=== PATIENT | female | born 1935 | race Caucasian/White ===

== ENCOUNTER 2016-08-13 16:42 | Emergency (ER) | payer MEDICARE, OTHER ==
[~2016-08-13] VITALS: Ht 154.9 cm; Wt 52.2 kg
[~2016-08-13 16:42] MED LIST: OLME20TA15; THYR30TA2
[2016-08-13 17:07] VITALS: BP 119/68
== END 2016-08-13 18:06 | disposition home or self-care (01) ==
LOC: ER 16:45
DX: S67.190A Crushing injury of right index finger, initial encounter (principal); M19.041 Primary osteoarthritis, right hand; I10 Essential (primary) hypertension; Z88.8 Allergy status to other drugs, medicaments and biological substances; W23.1XXA Caught, crushed, jammed, or pinched between stationary objects, initial encounter; Y93.89 Activity, other specified; Y92.89 Other specified places as the place of occurrence of the external cause; Y99.9 Unspecified external cause status
CPT/HCPCS: 29130; 73140; 99284; A4606; Z7610

== ENCOUNTER 2017-06-30 22:58 | Emergency (ER) | payer MEDICARE, OTHER ==
[~2017-06-30] VITALS: Ht 157.5 cm; Wt 54.9 kg
[~2017-06-30 22:58] MED LIST changes: -OLME20TA15; +OLME20TA21
[2017-06-30 23:16] VITALS: BP 150/80
--- NOTE | 2017-06-30 23:17 | NUR ---
PT BIBSELF C/O POSSIBLE ALLERGIC REACTION S/P TAKING MEDICINE THIS AM. PT AOX3 RR EVEN AND UNLABORED. NO SOB NOTED. NAD NOTED. NO NVD AT THIS TIME. PT GOWNED AND PLACED ON MONITOR WAITING FOR MD GREENE.
--- NOTE | 2017-06-30 23:28 | NUR ---
pt no longer in room. Patient eloped from facility. ER MD notified.
== END 2017-06-30 23:30 | disposition left against medical advice (07) ==
LOC: ER 23:00
DX: Z53.21 Procedure and treatment not carried out due to patient leaving prior to being seen by health care provider (principal)
CPT/HCPCS: A4606; Z7502; Z7610

== ENCOUNTER 2020-12-14 11:48 | Outpatient (CLI) | payer MEDICARE, OTHER ==
[~2020-12-14 11:48] MED LIST changes: +OLME20TA13; -OLME20TA21
[2020-12-14 13:34] LABS: BASOPHILS % (AUTO) 0.4 % (0.0-2.0); BILIRUBIN,URINE NEGATIVE (NEGATIVE); COLOR,URINE YELLOW (YELLOW); EOSINOPHILS % (AUTO) 2.1 % (0.0-6.0); HEMATOCRIT 45 % (33-45); HEMOGLOBIN 15.2 g/dL (11.5-14.8); LEUKOCYTE ESTERASE ,URINE NEGATIVE (NEGATIVE); LYMPHOCYTES % (AUTO) 22.5 % (20.0-44.0); MEAN CORPUSCULAR HGB CONC 34 g/dl (31.0-36.0); MEAN CORPUSCULAR VOLUME 100 fL (82-100); MONOCYTES # (AUTO) 0.4 K/uL (0.1-1.30); MONOCYTES % (AUTO) 7.9 % (2.0-12.0); NEUTROPHILS % (AUTO) 67.1 % (43.0-81.0); NITRITE, URINE NEGATIVE (NEGATIVE); PH,URINE 6.5 (5.0-8.0); PLATELET COUNT (AUTO) 173 K/uL (150-450); PROTEIN,URINE NEGATIVE (NEGATIVE); RED BLOOD CELL COUNT(AUTO) 4.47 MIL/uL (4.0-5.2); UGLUCOSE NEGATIVE (NEGATIVE); UROBILINOGEN,URINE 0.2 EU/dL (0.2); WHITE BLOOD COUNT (AUTO) 4.4 K/uL (4.3-11.0)
[2020-12-14 17:54] LABS: ALANINE AMINOTRANSFERASE 30 U/L (12-78); ALBUMIN 3.4 g/dL (3.4-5.0); ALKALINE PHOSPHATASE 112 U/L (46-116); ASPARTATE AMINOTRANSFERASE 22 U/L (15-37); BILIRUBIN,TOTAL 0.4 mg/dL (0.2-1.0); CALCIUM, SERUM 10.2 mg/dL (8.5-10.1); CARBON DIOXIDE 29 mmol/L (21-32); CHLORIDE 108 mmol/L (98-107); CREATININE 0.6 mg/dL (0.6-1.3); GLUCOSE 78 mg/dL (74-106); MAGNESIUM 2.1 mg/dL (1.8-2.4); PHOSPHORUS 2.6 mg/dL (2.5-4.9); POTASSIUM 4.3 mmol/L (3.5-5.1); SODIUM SERUM 143 mmol/L (136-145); TOTAL PROTEIN, SERUM 6.5 g/dL (6.4-8.2); UREA NITROGEN, BLOOD 29 mg/dL (7-18)
[2020-12-14 18:32] LABS: C-REACTIVE PROTEIN < 0.2 mg/dL (0.0-0.9)
[2020-12-15 09:07] LABS: *SPE A/G RATIO 1.3 (0.7-1.7); *SPE ALBUMIN 3.4 g/dL (2.9-4.4); *SPE ALPHA-1-GLOBULIN 0.3 g/dL (0.0-0.4); *SPE ALPHA-2-GLOBULIN 0.7 g/dL (0.4-1.0); *SPE BETA GLOBULIN 0.9 g/dL (0.7-1.3); *SPE GLOBULIN, TOTAL 2.6 g/dL (2.2-3.9); *SPE M-SPIKE Not Observed g/dL (Not Observed); *SPEGAMMA GLOBULIN 0.7 g/dL (0.4-1.8)
== END 2020-12-14 23:59 | disposition home or self-care (01) ==
LOC: MSC 11:48
PROVIDERS: ATTEND Internal Medicine
DX: E83.52 Hypercalcemia (principal); M81.0 Age-related osteoporosis without current pathological fracture; I10 Essential (primary) hypertension; R63.4 Abnormal weight loss; Z68.20 Body mass index [BMI] 20.0-20.9, adult; E78.5 Hyperlipidemia, unspecified; B27.00 Gammaherpesviral mononucleosis without complication; G57.93 Unspecified mononeuropathy of bilateral lower limbs; R42 Dizziness and giddiness
CPT/HCPCS: 36415; 80053; 81003; 82043; 82306; 82570; 82607; 82652; 83735; 83970; 84100; 84155 ×2; 84156; 84165; 85025; 85652; 86140; G0463

== ENCOUNTER 2020-12-15 12:21 | Outpatient (CLI) | payer MEDICARE, OTHER | END 2020-12-15 23:59 | disposition home or self-care (01) | LOC: NM 12:21 | PROVIDERS: ATTEND Internal Medicine | DX: I10 Essential (primary) hypertension (principal); E78.5 Hyperlipidemia, unspecified; M81.0 Age-related osteoporosis without current pathological fracture; E83.52 Hypercalcemia | CPT/HCPCS: 78070; A9500 ==

== ENCOUNTER → 2021-01-02 | Outpatient (CLI) | payer MEDICARE, OTHER | END | disposition home or self-care (01) | LOC: MSC 14:30 | PROVIDERS: ATTEND Internal Medicine | DX: E83.52 Hypercalcemia (principal); D35.1 Benign neoplasm of parathyroid gland; R53.83 Other fatigue; M81.0 Age-related osteoporosis without current pathological fracture; B27.00 Gammaherpesviral mononucleosis without complication; I10 Essential (primary) hypertension; E78.5 Hyperlipidemia, unspecified; G57.93 Unspecified mononeuropathy of bilateral lower limbs ==

== ENCOUNTER 2021-01-05 11:25 | Outpatient (CLI) | payer MEDICARE, OTHER ==
[2021-01-05 12:31] LABS: CALCIUM, SERUM 9.9 mg/dL (8.5-10.1); CREATININE 0.7 mg/dL (0.6-1.3); MAGNESIUM 2.4 mg/dL (1.8-2.4); PHOSPHORUS 3.1 mg/dL (2.5-4.9); POTASSIUM 4.9 mmol/L (3.5-5.1)
== END 2021-01-05 23:59 | disposition home or self-care (01) ==
LOC: LAB 11:25
PROVIDERS: ATTEND Internal Medicine
DX: I10 Essential (primary) hypertension (principal); E78.5 Hyperlipidemia, unspecified; M81.0 Age-related osteoporosis without current pathological fracture; E83.52 Hypercalcemia; B27.00 Gammaherpesviral mononucleosis without complication
CPT/HCPCS: 36415; 80048-TC; 82306; 83735-TC; 84100-TC

== ENCOUNTER → 2021-01-08 | Outpatient (CLI) | payer MEDICARE, OTHER | END | disposition home or self-care (01) | LOC: MSC 03:30 | PROVIDERS: ATTEND Internal Medicine | DX: E83.52 Hypercalcemia (principal); M81.0 Age-related osteoporosis without current pathological fracture; B27.00 Gammaherpesviral mononucleosis without complication; G57.93 Unspecified mononeuropathy of bilateral lower limbs; I10 Essential (primary) hypertension; E78.5 Hyperlipidemia, unspecified ==

== ENCOUNTER 2021-01-24 12:23 | Outpatient (CLI) | payer MEDICARE, OTHER ==
[2021-01-24 13:15] LABS: CALCIUM, SERUM 10.3 mg/dL (8.5-10.1); CREATININE 0.7 mg/dL (0.6-1.3); MAGNESIUM 2.2 mg/dL (1.8-2.4); PHOSPHORUS 3.2 mg/dL (2.5-4.9); POTASSIUM 4.8 mmol/L (3.5-5.1)
== END 2021-01-24 23:59 | disposition home or self-care (01) ==
LOC: LAB 12:23
PROVIDERS: ATTEND Internal Medicine
DX: I10 Essential (primary) hypertension (principal); E78.5 Hyperlipidemia, unspecified; M81.0 Age-related osteoporosis without current pathological fracture; E83.52 Hypercalcemia
CPT/HCPCS: 36415; 80048-TC; 82306; 82652; 83735-TC; 84100-TC

== ENCOUNTER → 2021-01-26 | Outpatient (CLI) | payer MEDICARE, OTHER | END | disposition home or self-care (01) | LOC: MSC 16:00 | PROVIDERS: ATTEND Internal Medicine | DX: M81.0 Age-related osteoporosis without current pathological fracture (principal); E83.52 Hypercalcemia; I10 Essential (primary) hypertension; E78.5 Hyperlipidemia, unspecified; G57.93 Unspecified mononeuropathy of bilateral lower limbs; B27.00 Gammaherpesviral mononucleosis without complication ==

== ENCOUNTER → 2021-02-01 | Outpatient (CLI) | payer MEDICARE, OTHER | END | disposition home or self-care (01) | LOC: MSC 15:00 | PROVIDERS: ATTEND Internal Medicine | DX: Z51.89 Encounter for other specified aftercare (principal); E83.52 Hypercalcemia; M81.0 Age-related osteoporosis without current pathological fracture; I10 Essential (primary) hypertension; E78.5 Hyperlipidemia, unspecified; B27.00 Gammaherpesviral mononucleosis without complication; G57.93 Unspecified mononeuropathy of bilateral lower limbs ==

== ENCOUNTER 2021-02-08 11:06 | Outpatient (CLI) | payer MEDICARE, OTHER | END 2021-02-08 23:59 | disposition home or self-care (01) | LOC: MSC 11:06 | PROVIDERS: ATTEND Internal Medicine | DX: E83.52 Hypercalcemia (principal); M81.0 Age-related osteoporosis without current pathological fracture; I10 Essential (primary) hypertension; E78.5 Hyperlipidemia, unspecified; B27.00 Gammaherpesviral mononucleosis without complication; G57.93 Unspecified mononeuropathy of bilateral lower limbs; Z79.890 Hormone replacement therapy ==

== ENCOUNTER → 2021-02-22 | Outpatient (CLI) | payer MEDICARE, OTHER | END | disposition home or self-care (01) | LOC: MSC 14:45 | PROVIDERS: ATTEND Internal Medicine | DX: E83.52 Hypercalcemia (principal); I10 Essential (primary) hypertension; E78.5 Hyperlipidemia, unspecified; M81.0 Age-related osteoporosis without current pathological fracture; B27.00 Gammaherpesviral mononucleosis without complication; G57.93 Unspecified mononeuropathy of bilateral lower limbs ==

== ENCOUNTER 2021-04-18 11:13 | Outpatient (CLI) | payer MEDICARE, OTHER | END 2021-04-18 23:59 | disposition home or self-care (01) | LOC: WOU 11:13 | PROVIDERS: ATTEND Specialist | DX: T21.24XA Burn of second degree of lower back, initial encounter (principal); T31.0 Burns involving less than 10% of body surface; X19.XXXA Contact with other heat and hot substances, initial encounter; Y92.89 Other specified places as the place of occurrence of the external cause; E89.0 Postprocedural hypothyroidism | CPT/HCPCS: 36415; 83036; 84134; A6209; G0463 ==

== ENCOUNTER 2021-04-25 13:40 | Outpatient (CLI) | payer MEDICARE, OTHER ==
[2021-04-25] MEDS ORDERED: LIDOCAINE 2% JEL 5 ML TUBE ONE (14:17)
== END 2021-04-25 23:59 | disposition home health service (06) ==
LOC: WOU 13:40
PROVIDERS: ATTEND Specialist
DX: T21.24XD Burn of second degree of lower back, subsequent encounter (principal); T31.0 Burns involving less than 10% of body surface; X19.XXXD Contact with other heat and hot substances, subsequent encounter
CPT/HCPCS: A6209; G0463

== ENCOUNTER 2021-05-02 13:00 | Outpatient (CLI) | payer MEDICARE, OTHER | END 2021-05-02 23:59 | disposition home health service (06) | LOC: WOU 13:00 | PROVIDERS: ATTEND Specialist | DX: T21.24XD Burn of second degree of lower back, subsequent encounter (principal); T31.0 Burns involving less than 10% of body surface; X19.XXXD Contact with other heat and hot substances, subsequent encounter; E89.0 Postprocedural hypothyroidism | CPT/HCPCS: G0463 ==

== ENCOUNTER 2022-05-15 10:40 | Outpatient (CLI) | payer MEDICARE, OTHER | END 2022-05-15 23:59 | disposition home or self-care (01) | LOC: WOU 10:40 | PROVIDERS: ATTEND Specialist | DX: T21.14XA Burn of first degree of lower back, initial encounter (principal); T31.0 Burns involving less than 10% of body surface; X16.XXXA Contact with hot heating appliances, radiators and pipes, initial encounter; Y93.89 Activity, other specified; Y92.89 Other specified places as the place of occurrence of the external cause; E89.0 Postprocedural hypothyroidism | CPT/HCPCS: 16020; A6209 ==

== ENCOUNTER 2022-08-31 18:34 | Inpatient (IN) | payer MEDICARE, OTHER ==
[~2022-08-31] VITALS: Ht 157.5 cm; Wt 51.7 kg
--- NOTE | 2022-08-31 19:55 | NUR ---
BIBSELF C/O GLF WITH WOUND TO RIGHT EYE, RIGHT ARM AND SHOULDER PAIN AND NECK PAIN, RIGHT LEG PAIN. PATIENT IS AAOX4. ABLE TO MAKE NEEDS KNOWN. AMBULATORY. PLACED COMFORTABLY IN BED. VITALS CHECKED.
--- NOTE | 2022-08-31 20:09 | NUR ---
SEEN BY MD AT BEDSIDE
--- NOTE | 2022-08-31 20:13 | NUR ---
FOR SUTURING OF LAC WOUND BY DR WHEELER, SKIN PREP IS BEING PERFORMED BY CORPORATE STATISTICAL FINANCIAL ANALYST
[2022-08-31] MEDS ORDERED: LIDOCAINE HCL/PF 1% 30 ML VIAL TP ONE (20:30)
[2022-08-31] MEDS ORDERED: TDAP [DIPH/PERTUSSIS/TET] 0.5 ML VIAL IM ONE ×2 (20:30→20:33)
[2022-08-31] MEDS ORDERED: ACETAMINOPHEN ES 500 MG TABLET PO ONE (20:30)
[2022-08-31] MEDS ORDERED: LIDOCAINE /MPF 1% VIAL 5 ML VIAL ONE (20:33)
[2022-08-31] MEDS ORDERED: ACETAMINOPHEN ES 500 MG TABLET ONE (20:33)
--- NOTE | 2022-08-31 20:55 | NUR ---
BROUGHT TO CT DEPT
--- NOTE | 2022-08-31 21:07 | NUR ---
CAME BACK FROM CT DEPT
--- NOTE | 2022-08-31 21:35 | NUR ---
XRAY DONE AT BEDSIDE
--- NOTE | 2022-08-31 22:24 | NUR ---
SUTURING OF WOUND DONE BY DR WHEELER UNDER LOCAL ANESTHESIA
--- NOTE | 2022-08-31 23:00 | NUR ---
VERIFIED WITH DR WHEELER IF HE REALLY WANTS TO GIVE THE VALIUM TO PATIENT WITH BRAIN INJURY, DECIDED TO HOLD THE MEDICINE.
--- NOTE | 2022-08-31 23:06 | NUR ---
COVID SWAB DONE AND SENT TO LAB
--- NOTE | 2022-08-31 23:06 | NUR ---
IV JOSÉ G20 INSERTED ON LEFT AC.
[2022-08-31] MEDS ORDERED: DIAZEPAM 5 MG TABLET PO ONE (23:30)
[2022-09-01 00:41] LABS: BASOPHILS % (AUTO) 0.5 % (0.0-2.0); EOSINOPHILS % (AUTO) 1.6 % (0.0-6.0); HEMATOCRIT 40 % (33-45); HEMOGLOBIN 13.3 g/dL (11.5-14.8); LYMPHOCYTES # (AUTO) 1.2 K/uL (0.8-4.8); LYMPHOCYTES % (AUTO) 17.6 % (20.0-44.0); MEAN CORPUSCULAR HGB CONC 33 g/dl (31.0-36.0); MEAN CORPUSCULAR VOLUME 96 fL (82-100); MONOCYTES # (AUTO) 0.4 K/uL (0.1-1.30); MONOCYTES % (AUTO) 6.3 % (2.0-12.0); PLATELET COUNT (AUTO) 148 K/uL (150-450); RED BLOOD CELL COUNT(AUTO) 4.18 MIL/uL (4.0-5.2); WHITE BLOOD COUNT (AUTO) 6.8 K/uL (4.3-11.0)
[2022-09-01 01:08] LABS: CARBON DIOXIDE 27 mmol/L (21-32); CHLORIDE 109 mmol/L (98-107); CREATININE 0.8 mg/dL (0.6-1.3); GLUCOSE 117 mg/dL (74-106); POTASSIUM 3.8 mmol/L (3.5-5.1); SODIUM SERUM 143 mmol/L (136-145); UREA NITROGEN, BLOOD 36 mg/dL (7-18)
[2022-09-01 01:13] LABS: ALANINE AMINOTRANSFERASE 29 U/L (12-78); ALBUMIN 3.3 g/dL (3.4-5.0); ALKALINE PHOSPHATASE 146 U/L (46-116); ASPARTATE AMINOTRANSFERASE 28 U/L (15-37); BILIRUBIN,DIRECT 0.1 mg/dL (0.0-0.2); BILIRUBIN,TOTAL 0.4 mg/dL (0.2-1.0); TOTAL PROTEIN, SERUM 5.7 g/dL (6.4-8.2)
--- NOTE | 2022-09-01 01:19 | NUR ---
Wade no in [facility] - 09/01/22 at 0120 by PABLO [id number]
[2022-09-01] MEDS ORDERED: Z GUARD REMEDY 4 OZ OINT TP PRN (01:30)
[2022-09-01] MEDS ORDERED: CLONIDINE HCL 0.1 MG TABLET PO PRN (01:30)
[2022-09-01] MEDS ORDERED: ACETAMINOPHEN 325 MG TABLET PO PRN (01:30)
[2022-09-01] MEDS ORDERED: ZOLPIDEM TARTRATE 5 MG TABLET PO PRN (01:30)
[2022-09-01] MEDS ORDERED: hydrALAZINE HCL IV 20 MG VIAL IV PRN (01:30)
[2022-09-01] MEDS ORDERED: ONDANSETRON HCL/PF 4 MG/2 ML VIAL IVP PRN (01:30)
[2022-09-01] MEDS ORDERED: HYDROCODONE/APAP 5/325MG TABLET PO PRN (01:30)
[2022-09-01] MEDS ORDERED: MAG HYDROX/AL HYDROX/SIMETH 30 ML UDC PO PRN (01:30)
[2022-09-01] MEDS ORDERED: MAGNESIUM HYDROXIDE 30 ML UDC PO PRN (01:30)
[2022-09-01] MEDS ORDERED: IV NS 0.9% 1,000 ML IV ONE (02:00)
--- NOTE | 2022-09-01 02:30 | NUR ---
RN NOTE RECEIVED ER ADMISSION REPORT FROM SARKIS HARRISON. ALL PERTINENT ADMISSION INFO REGARDING PT NOTED. WILL WAIT FOR PT TO BE TRANSFERRED TO UNIT AND ADDRESS NEEDS ACCORDINGLY. CLEANER OPERATOR MADE AWARE.
--- NOTE | 2022-09-01 02:33 | NUR ---
REPORT GIVEN TO SARKIS CAZARES
[2022-09-01] MEDS ORDERED: LEVETIRACETAM (500MG) 500 MG in IV NS 0.9% 100 ML IV SCH (02:35)
--- NOTE | 2022-09-01 03:21 | NUR ---
TRANSFERRED TO ROOM VIA ACLS PROTOCOL
--- NOTE | 2022-09-01 03:25 | NUR ---
RN NOTE RECEIVED PT FROM ER VIA GURNEY ACCOMPANIED BY 2 ER STAFF AND TRANSFERRED TO BED INDEPENDENTLY. PT IS A/OX4; ON ROOM AIR WITH RESPIRATIONS EVEN AND UNLABORED. COMPREHENSIVE PHYSICAL ASSESSMENT DONE; WITH NOTICEABLE SKIN TEAR ON THE R EYE WITH SUTURES SECURED AND INTACT. PATIENT CARE ASSISTED. CALL LIGHT WITHIN REACH, SAFETY MEASURES WILL CONTINUE MONITOR AND ASSESS THROUGHOUT THE SHIFT. WILL CARRY OUT MD ORDERS ACCORDINGLY. RECORDS MANAGEMENT COORDINATOR MADE AWARE.
[2022-09-01 04:00] VITALS: BP 131/63
[2022-09-01] MEDS ORDERED: LEVETIRACETAM (500MG) 500 MG/5 ML VIAL IV ONE (05:14)
--- NOTE | 2022-09-01 06:31 | NUR ---
RN CLOSING NOTE: PATIENT REMAINS IN ROOM IN NO SIGNS OF RESPIRATORY DISTRESS, PATIENT STILL ONROOM AIR ;TOLERATING WELL SATURATING @ >95% SP02. SAFETY MEASURES IMPLEMENTED, BED IN LOWEST POSITION, LOCKED, SIDE RAILS UP, CALL LIGHT WITHIN REACH. ALL NEEDS AND ORDERS ADDRESSED DURING THE SHIFT. IV ACCESS MAINTAINED INTACT, SECURED AND FLUSHING WELL. IV FLUIDS RUNNING ORDERED. ALL DUE MEDS GIVEN ORDERED & SCHEDULED ; PATIENT TOLERATED WELL. PATIENT KEPT CLEAN AND COMFORTABLE WITHIN THE SHIFT. PATIENT ENDORSED TO INCOMING SHIFT RN WITH STABLE VITAL SIGN AND FOR CONTINUITY OF CARE.
--- NOTE | 2022-09-01 07:26 | NUR ---
RN OPENING NOTE RECEIVED PATIENT IN BED. PT ALERT AND ORIENTED X4. PT ON ROOM AIR TOLERATING > 95%. PT IS ON TELE MONITOR CURRENTLY SINUS RHYTM 72.NO SIGNS OF PAIN OR DISCOMFORT NOTED A THIS TIME. PT NOTED TO HAVE LEFT LACERATION ON RIGHT EYE. PT HAS LEFT AC 20 GUAGE, IV INTACT, PATENT AND FLUSHING WELL. ALL SAFETY MEASURES IN PLACE. CALL LIGHT WITHIN REACH. BED LOCKED AT LOWEST POSITUION. SIDE RAILS UP X2. CALL LIGHT WITHIN REACH.
[2022-09-01 08:00] VITALS: BP 116/66
[2022-09-01] MEDS: LOSARTAN POTASSIUM 25 MG TABLET PO SCH ×2 (08:11→08:31)
--- NOTE | 2022-09-01 08:31 | NUR ---
RN NOTE OPENED UP LOSARTAN IN PT ROOM. PT REFUSED TAKING AT THIS TIME.PROVIDED EDUCATION ABOUT BENEFITS AND PT STILL REFUSED. Addendum: 09/01/22 at 1923 by JUDD LUNA RN discarded it in sharps container
[2022-09-01] MEDS ORDERED: PANTOPRAZOLE 40 MG VIAL IV SCH (09:00)
--- NOTE | 2022-09-01 11:47 | NUR ---
PIPING DESIGNER NOTE PER DR CHARLIE WILEY TO TRANSFER TO TELE ,ORDER CARRIED OUT
[2022-09-01 12:00] VITALS: BP 113/70
--- NOTE | 2022-09-01 14:56 | NUR ---
rn note rounds made with dr. lin. pt requesting anxiety medicaitions at this time said to order valium 2.5 [address]N asked [address]. lin if based on pt diagnosis, okay to give valium. said its low dose and okay with it
[2022-09-01] MEDS ORDERED: DIAZEPAM 5 MG TABLET PO PRN (15:00)
[2022-09-01 16:00] VITALS: BP 113/65
--- NOTE | 2022-09-01 16:04 | NUR ---
RN NOTE NOTIFIED DR. GUERRA THAT PT REFUSED LOSARTAN AND PROTONIX EARLIER. AWARE
[2022-09-01] MEDS: DIAZEPAM 5 MG TABLET PO PRN ×2 (17:11→23:30)
--- NOTE | 2022-09-01 18:27 | NUR ---
rn note notiifed dr. lin that pt requesting clear eye drops. aware
--- NOTE | 2022-09-01 19:17 | NUR ---
LENS MAKER CLOSING NOTE PATIENT IN BED. PT ALERT AND ORIENTED X4. PT ON ROOM AIR TOLERATING > 95%. PT IS ON TELE MONITOR CURRENTLY SINUS RHYTM 76.NO SIGNS OF PAIN OR DISCOMFORT NOTED A THIS TIME. PT NOTED TO HAVE LEFT LACERATION ON RIGHT EYE. PT HAS LEFT AC 20 GUAGE, IV INTACT, PATENT AND FLUSHING WELL. ALL SAFETY MEASURES IN PLACE. CALL LIGHT WITHIN REACH. BED LOCKED AT LOWEST POSITION. SIDE RAILS UP X2. CALL LIGHT WITHIN REACH. ENDORSED TO ROTARY SHEAR WORKER HELPER RN FOR CONTUITY OF CARE
--- NOTE | 2022-09-01 19:30 | NUR ---
MOTORCYCLE SALES ASSOCIATE CLOSING NOTE RECEIVED PATIENT IN AWAKE IN BED AT THIS TIME. A/O X4, ABLE TO MAKE NEEDS KNOWN. ON RA WITH NO S/S OF SOB OR DISTRESS. ON TELE MONITOR CURRENTLY SINUS RHYTM 76. PT NOTED TO HAVE LEFT LACERATION ON RIGHT EYE. IV ACCESS LAC #20G SL, INTACT, PATENT AND FLUSHING WELL. ALL SAFETY MEASURES IN PLACE: CALL LIGHT WITHIN REACH, BED LOCKED AT LOWEST POSITION, SIDE RAILS UP X3, CALL LIGHT WITHIN REACH. WILL CONTINUE TO MONITOR AND ASSIST. Addendum: 09/01/22 at 2149 by DEBORA ALANIZ RN CORRECTION: MOTORCYCLE SALES ASSOCIATE OPENING NOTE
[2022-09-01 20:00] VITALS: BP 110/66
[2022-09-01] MEDS: LEVETIRACETAM (500MG) 500 MG in IV NS 0.9% 100 ML IV SCH (20:37)
--- NOTE | 2022-09-01 23:45 | NUR ---
RN NOTE PT AGITATED AND REQUESTING FOR HER VALIUM STATING THAT "SHE'S ADDICTED TO IT". ORDER FOR MED IS 2.5 MG (0.5 TAB) BID WITH NO SPECIFIC HOURS/PARAMETERS BETWEEN DOSES. ASKED MARY KATE KAUR IF OK TO GIVE NOW EVEN THOUGH LAST DOSE WAS 1710. MARY KATE KAUR SAID ITS OKAY. WILL ADMINISTER PRESCRIBED.
[2022-09-02] VITALS: BP 129/71
[2022-09-02 04:00] VITALS: BP 127/70
--- NOTE | 2022-09-02 06:34 | NUR ---
INDUSTRIAL MAINTENANCE MECHANIC CLOSING NOTE PATIENT IN BED RESTING AT THIS TIME, EASILY AROUSABLE. A/O X4, ABLE TO MAKE NEEDS KNOWN, WAS PLEASANT UNTIL IT WAS TIME FOR HER VALIUM. STABLE ON RA WITH NO S/S OF SOB OR DISTRESS. ON TELE MONITOR CURRENTLY SINUS RHYTM 69. PT NOTED TO HAVE LEFT LACERATION ON RIGHT EYE. IV ACCESS LAC #20G SL, INTACT, PATENT AND FLUSHING WELL. ALL CARE PROVIDED AND MEDS TOLERATED WELL. ALL SAFETY MEASURES MAINTAINED: CALL LIGHT WITHIN REACH, BED LOCKED AT LOWEST POSITION, SIDE RAILS UP X3, CALL LIGHT WITHIN REACH. WILL ENDORSE JACKSON TO DAY SHIFT NURSE.
--- NOTE | 2022-09-02 06:54 | NUR ---
RN NOTE PT REFUSED BLOOD DRAW THIS MORNING. PT STATES "I DONT WANT THEM ANYMORE".
[2022-09-02 08:00] VITALS: BP 113/67
--- NOTE | 2022-09-02 08:26 | NUR ---
WOUND CARE CONSULT: PT PRESENTS WITH SUTURED LACERATION TO RT SIDE OF FACE, PRESENT ON ADMISSION. DR RIZO CALLED FOR SURGICAL CONSULT. DISCUSSED SKIN PROTECTION WITH NURSING STAFF. MD IN AGREEMENT WITH PLAN OF CARE.
[2022-09-02] MEDS ORDERED: BACITRACIN/POLYMYXIN B 15 GM TUBE TP SCH (09:00)
[2022-09-02] MEDS ORDERED: PANTOPRAZOLE 40 MG TABLET.DR PO SCH (09:00)
--- NOTE | 2022-09-02 09:10 | NUR ---
RN NOTE PATIENT LEFT FOR MRI VIA WHEELCHAIR AT THIS TIME.
[2022-09-02] MEDS: LEVETIRACETAM (500MG) 500 MG in IV NS 0.9% 100 ML IV SCH (10:09)
[2022-09-02] MEDS: LOSARTAN POTASSIUM 25 MG TABLET PO SCH (10:10)
--- NOTE | 2022-09-02 11:55 | NUR ---
RN NOTE PATIENT LEFT ROOM FOR CT SCAN VIA WHEELCHAIR ACCOMPANIED BY TRANSPORTED
[2022-09-02 12:00] VITALS: BP 117/67
--- NOTE | 2022-09-02 12:13 | NUR ---
RN NOTE PATIENT RETURNED TO ROOM FROM CT AT THIS TIME.
--- NOTE | 2022-09-02 15:47 | NUR ---
RN NOTE PATIENT ALERT, ORIENTED X4, WAS DISCHARGED HOME, MD NOTIFIED PATIENTS REQUESTS TO DRIVE HERSELF HOME, MD APPROVED AT THIS TIME. PATIENT SIGNED DISCHARGE PACKAGE AND VERBALLY ACKNOWLEDGE DISCHARGE INSTRUCTIONS. BELONGINGS LISTS ACCOUNTED FOR AND SIGNED BY PATIENT. ID BAND, IV ACCESS REMOVED, NO SIGNS OR SYMPTOMS OF BLEEDING , TELE BOX REMOVED. PATIENT IN STABLE CONDITION, PHOTOS TAKEN AND PLACED IN CHART. PATIENT WAS ESCORTED OUT VIA WHEELCHAIR BY HANH HANSON. CHARGE NURSE AWARE.
== END 2022-09-02 17:16 | disposition home or self-care (01) | DRG 84 ==
LOC: ER 18:47 → TELE1 09-01 02:24 → TELE-TD 09-01 06:13 → TELE1 09-01 11:47 → UNDODISIN 09-02 15:36
DX: S06.5XAA Traumatic subdural hemorrhage with loss of consciousness status unknown, initial encounter (principal); W01.0XXA Fall on same level from slipping, tripping and stumbling without subsequent striking against object, initial encounter; Y93.01 Activity, walking, marching and hiking; F41.9 Anxiety disorder, unspecified; I10 Essential (primary) hypertension; Z20.822 Contact with and (suspected) exposure to COVID-19; S01.81XA Laceration without foreign body of other part of head, initial encounter; Y92.89 Other specified places as the place of occurrence of the external cause; S80.211A Abrasion, right knee, initial encounter; M25.511 Pain in right shoulder; M19.90 Unspecified osteoarthritis, unspecified site; E03.9 Hypothyroidism, unspecified; Z87.828 Personal history of other (healed) physical injury and trauma; Z79.899 Other long term (current) drug therapy; Z79.890 Hormone replacement therapy; M79.621 Pain in right upper arm
CPT/HCPCS: 36415; 70450-TC; 71045-TC; 72125-TC; 73030-TC; 73080-TC; 73218-TC; 73221-TC; 73564-TC; 80048-TC; 80076-TC; 85025-TC; 85730-TC; 87081-TC; 90715; 97112-TC; 97116-TC; 97530-TC; A4223; A6403; C9803; G0378; J1953; J3490; J7030